=== PATIENT | male | born 1990 | race Caucasian/White ===

== ENCOUNTER 2021-08-09 12:56 | Emergency (ER) | payer OTHER | END 2021-08-09 14:10 | disposition home or self-care (01) | LOC: KA.ED 12:56 | DX: S90.32XA Contusion of left foot, initial encounter (principal); Z72.0 Tobacco use; W20.8XXA Other cause of strike by thrown, projected or falling object, initial encounter | CPT/HCPCS: 73620-LT; 99283-25 ==